=== PATIENT | male | born 1985 | race Caucasian/White ===

== ENCOUNTER 2025-02-13 18:59 | Inpatient (IN) | payer OTHER, SELFPAY ==
[2025-02-13] VITALS (9 sets, daily range): BP systolic 100–134; BP diastolic 50–76
[2025-02-13 16:47] LABS: Glucose - Point of Care 420 mg/dl (70-99)
[2025-02-13] MEDS: ZOFRAN 4 MG IV (16:55)
[2025-02-13] MEDS: NSS 1000 IV ×4 (16:55→18:19)
[2025-02-13 16:57] LABS: Hematocrit 41.9 % (39.0-52.0); Hemoglobin 15.1 g/dL (13.0-18.0); Mean Corp Hgb Conc. 36.0 g/dL (33.0-37.0); Mean Corpuscular Volume 85.3 fL (80.0-94.0); Nucleated Red Blood Cells % 0 % (-); Platelet Count 293 10^3/uL (130-400); Red Cell Dist. Width 12.6 % (11.5-14.5)
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
[2025-02-13] MEDS: VERSED 2 MG IV (17:12)
[2025-02-13 17:21] LABS: Troponin I < 0.012 ng/ml
[2025-02-13 17:45] LABS: AST (SGOT) 25 U/L (17-59); Albumin 4.8 g/dl (3.5-5.0); Alkaline Phosphatase 112 U/L (38-126); Blood Urea Nitrogen 20 mg/dl (9-20); Calcium 10.2 mg/dl (8.4-10.2); Carbon Dioxide 12 mmol/L (22-30); Chloride 99 mmol/L (98-107); Glucose 418 mg/dl (70-99); Lipase 17 U/L (23-300); Potassium 4.7 mmol/L (3.5-5.1); Sodium 133 mmol/L (135-145); Total Protein 7.4 g/dl (6.3-8.2); eGFR > 60.00
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
[2025-02-13 18:15] LABS: Glucose - Point of Care 400 mg/dl (70-99)
[2025-02-13] MEDS: NOVOLIN R 8 UNITS IV (18:22)
[2025-02-13 18:24] LABS: Urine Character Clear (Clear)
[2025-02-13 18:28] LABS: Venous Blood Gas B.E. -8.8 mmol/L (-4 to +4); Venous Blood Gas O2 Sat % 82.6 %
--- NOTE | 2025-02-13 18:57 | W.PN.UPDATE ---
Update Note
Progress Note Update
This note serves as an addendum to the H&P by pie filling mixer JUAN�
Vicki JOSELYN
HPI
39 y/o male past medical history of type 1 diabetes, hypothyroidism and polysubstance abuse who presents with vomiting and agitation. Initially patient was brought in by police for agitation, and patient was found to be markedly hyperglycemic.
Patient was given Versed in the emergency department due to the agitation. He continue so complain of nausea, and was previous vomiting. Patient is a poor historian following the Versed. Patient has an insulin pump but at this time it is unclear
if its working properly.
Relevant VS
Vital Signs
Pulse Resp BP Pulse Ox
67 18 134/50 100
02/13/25 17:19 02/13/25 17:19 02/13/25 17:19 02/13/25 17:19
PE
Gen: NAD, not toxic
HEENT: anicteric
Neck: supple
Lungs: CTA
Cor: S1 S2
Abdomen:�soft benign
EXECUTIVE SALES ASSISTANT: AAO3
MS: no edema
Psych: calm
Relevant Data
02/13/25 02/13/25 02/13/25
16:35 16:48 18:13
VBG pH 7.25 L
VBG pO2 54 H
VBG HCO3 18.0 L
Sodium 133 L
Carbon Dioxide 12 L*
Glucose 418 H
Total Bilirubin 1.6 H
Lipase 17 L
Urine Ketones 3+ A
Urine Glucose 4+ A
Ur Buprenorphine Positive H
U Marijuana (THC) Screen Positive H
B-Hydroxybutyrate 1.83 H
POC Glucose 420 H
02/13/25
18:14
VBG pH
VBG pO2
VBG HCO3
Sodium
Carbon Dioxide
Glucose
Total Bilirubin
Lipase
Urine Ketones
Urine Glucose
Ur Buprenorphine
U Marijuana (THC) Screen
B-Hydroxybutyrate
POC Glucose 400 H
ASSESSMENT & PLAN
DKA due to function insulin pump
POS BHB
AG MA 22
- Dry heaving
- hold pump
- insulin gtt
- IVFs
- Monitor BMP every 4 hours and blood glucose every 1 hour
- DM VICE PRESIDENT QUALITY ASSURANCE VICE PRESIDENT QUALITY ASSURANCE consult with anion gap closes
Hypothyroidism
-Continue levothyroxine
Polysubstance Abuse HX
- UDS pending
- on chr buprenorphine
Hx Alcohol Abuse
- denies current alcohol abuse
DVT proph: Lovenox
Code Status: Full Code
ICU
Total Critical Care Time_35____ minutes. I was immediately available to the patient and staff. I personally examined, reviewed labs, diagnostic images/reports, interpretations, treatment plans, discussed patient care with other providers and
family or caregivers (if patient is unable to make decisions), entered orders as appropriate and documented the medical record.
[2025-02-13] MEDS: TIGAN 200 MG IM (19:00)
[2025-02-13] MEDS: NOVOLIN R INSULIN INFUSION 100 IV (19:04)
--- NOTE | 2025-02-13 19:16 | EDRN ---
Report given to Inna in ICU
[2025-02-13 19:24] LABS: ALT (SGPT) 29 U/L (0-50)
[2025-02-13 19:49] LABS: Glucose - Point of Care 247 mg/dl (70-99)
[2025-02-13] MEDS: D5/0.45%NSS with KCL 20 MEQ 1000 IV (20:16)
[2025-02-13] MEDS: SUBUTEX 8 MG SL (20:16)
[2025-02-13 21:10] LABS: Glucose - Point of Care 177 mg/dl (70-99)
--- NOTE | 2025-02-13 21:27 | PTCARENOTE ---
Pt arrived from ED to ICU approx 19:30. Pt Ox3, pleasant and cooperative. Pulses palpable, HR mid 90s. RA, pulse ox 99%, breath sounds clear t/o. + bowel sounds, denies nausea. No BM or urine output noted at this time. Skin intact. Insulin gtt
continues, dose adjusted per DKA protocol. BS <250, IVF changed per provider. Safe environment maintained, call pérez within reach, family at bedside.
[2025-02-13 22:24] LABS: Glucose - Point of Care 173 mg/dl (70-99)
[2025-02-13 22:33] LABS: Blood Urea Nitrogen 19 mg/dl (9-20); Calcium 8.7 mg/dl (8.4-10.2); Carbon Dioxide 25 mmol/L (22-30); Chloride 104 mmol/L (98-107); Glucose 188 mg/dl (70-99); Potassium 4.1 mmol/L (3.5-5.1); Sodium 135 mmol/L (135-145); eGFR > 60.00
[2025-02-13] MEDS: MELATONIN 10 MG PO (22:48)
[2025-02-13] MEDS: NICODERM TRANSDERMAL 21 MG TRANSDERM (22:48)
[2025-02-13 23:45] LABS: Glucose - Point of Care 210 mg/dl (70-99)
[2025-02-14] VITALS (13 sets, daily range): BP systolic 86–128; BP diastolic 55–77
[2025-02-14] MEDS: D5/0.45%NSS with KCL 20 MEQ 1000 IV ×2 (00:51→04:59)
[2025-02-14 00:54] LABS: Glucose - Point of Care 215 mg/dl (70-99)
[2025-02-14 01:08] LABS: Blood Urea Nitrogen 18 mg/dl (9-20); Calcium 8.3 mg/dl (8.4-10.2); Carbon Dioxide 25 mmol/L (22-30); Chloride 106 mmol/L (98-107); Glucose 218 mg/dl (70-99); Potassium 4.6 mmol/L (3.5-5.1); Sodium 135 mmol/L (135-145); eGFR > 60.00
[2025-02-14] MEDS: TIGAN 200 MG IM (02:09)
[2025-02-14 02:17] LABS: Glucose - Point of Care 223 mg/dl (70-99)
[2025-02-14 03:20] LABS: Glucose - Point of Care 221 mg/dl (70-99)
[2025-02-14 04:36] LABS: Glucose - Point of Care 223 mg/dl (70-99)
[2025-02-14 06:27] LABS: Glucose - Point of Care 216 mg/dl (70-99)
[2025-02-14 06:37] LABS: Hematocrit 33.5 % (39.0-52.0); Hemoglobin 11.8 g/dL (13.0-18.0); Mean Corp Hgb Conc. 35.2 g/dL (33.0-37.0); Mean Corpuscular Volume 87.7 fL (80.0-94.0); Nucleated Red Blood Cells % 0 % (-); Platelet Count 221 10^3/uL (130-400); Red Cell Dist. Width 12.8 % (11.5-14.5)
[2025-02-14 06:41] LABS: INR 1.20; PT 15.5 Sec (11.4-14.6)
[2025-02-14 06:42] LABS: APTT 30.5 Sec (23.4-35.0)
[2025-02-14 06:50] LABS: Blood Urea Nitrogen 14 mg/dl (9-20); Calcium 8.2 mg/dl (8.4-10.2); Carbon Dioxide 23 mmol/L (22-30); Chloride 107 mmol/L (98-107); Glucose 212 mg/dl (70-99); Potassium 4.7 mmol/L (3.5-5.1); Sodium 134 mmol/L (135-145); eGFR > 60.00
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
[2025-02-14] MEDS: SUBUTEX 8 MG SL ×2 (08:14→19:49)
[2025-02-14] MEDS: SYNTHROID 150 MCG PO (08:14)
[2025-02-14] MEDS: D5/0.45%NSS with KCL 20 MEQ IV ×2 (08:14→11:41)
--- NOTE | 2025-02-14 08:21 | PTCARENOTE ---
Update assessment, vital signs and plan of cares. Update with home health lpn team, pharmacy and critical care team. Prep for transition off ivf, off insulin drip. Labs updated as ordered. Follow up teaching ongoing. Update sent to diabetic coordinator
team. Continue follow up teaching.
[2025-02-14] MEDS: LANTUS 0.25 UNITS SC (08:35)
[2025-02-14 08:46] LABS: Glucose - Point of Care 162 mg/dl (70-99)
[2025-02-14] MEDS: NOVOLOG FLEXPEN-LOW RESISTANCE 1 UNITS SC (09:11)
[2025-02-14] MEDS: NOVOLOG FLEXPEN 5 UNITS SC ×3 (09:11→16:35)
--- NOTE | 2025-02-14 10:23 | PTCARENOTE ---
Updated plan of cares. Continue transition process. Update with hospitalist team. Follow up ongoing labs as ordered.
[2025-02-14 11:11] LABS: Glycohemoglobin (HgbA1c) 7.9 % (4.0-5.6)
[2025-02-14 11:21] LABS: Glucose - Point of Care 121 mg/dl (70-99)
[2025-02-14] MEDS: NOVOLOG FLEXPEN-LOW RESISTANCE SC (11:28)
--- NOTE | 2025-02-14 13:30 | PTCARENOTE ---
Patient downgraded to Med-Surgical status. Continue accu data trends. Update with family at bedside. Will update hospitalist team 1800 labs. IVF capped tolerating po intake.
--- NOTE | 2025-02-14 13:32 | CM ---
manager of supply chain reviewed patient's chart and met with patient and patient states he lives with his parents in 2 story home, with 3 steps to enter, patient is independent with adl's and ambulation, no dme, patient reports that he is to blame when his
insulin pump failed. Patient has a long history of polysubstance abuse, has met with [facility] in past and has been placed for inpatient treatment. Plan: home when stable.
PCP: [facility], per patient has an appointment on 03/05/25
Pharmacy: [facility] in [place].
--- NOTE | 2025-02-14 14:36 | W.PN.HOSP.TC ---
Today's Communication/Plan
-
cont dm diet
monitor bmp
pump eval prior to dc
Assessment / Plan
Assessment / Plan
General: Well Developed and Well Nourished, weating
HEENT: Anicteric
Respiratory: Clear and Non Labored Respirations
Cardiac: S1/S2 and Regular Rhythm
GI: Soft and Non Tender
Musculoskeletal: No Clubbing and No Cyanosis
Skin: Warm and Dry
Neuro: Awake, Alert, Oriented and Nonfocal/grossly intact
Psych: Calm
Diabetic Ketoacidosis, suspect triggered by malfunction insulin pump
-Gap Closed
-Transitioned over to long acting insulin
-a1c 7.9
-Off IVF
-DM diet - tolerating well
-Can check bmp one more time later today
-Plan for diabetic TRACK LINER OPERATOR consult for pump failure prior to dc
Hypothyroidism
-Continue levothyroxine
Polysubstance Abuse
-Continue buprenorphine
Hx Alcohol Abuse - Patient denies current alcohol abuse
DVT proph: Lovenox
Code Status: Full Code
Anticipated Discharge: 24 - 48 hours
Subjective/Interval History
-
Date of Service: February 14, 2025
Close overnight, transitioned over to subcu insulin this morning
Objective Data
-
Labs:
Laboratory Results
02/14/25 02/14/25 02/14/25
06:10 06:11 08:00
WBC 11.4 H
Hgb 11.8 L D
Hct 33.5 L
Plt Count 221 D
PT 15.5 H
INR 1.20
APTT 30.5
Sodium 134 L Cancelled
Potassium 4.7 Cancelled
Chloride 107 Cancelled
Carbon Dioxide 23 Cancelled
BUN 14 Cancelled
Creatinine 0.6 L Cancelled
Glucose 212 H Cancelled
Calcium 8.2 L Cancelled
Total Bilirubin Pending
AST Pending
ALT Pending
Alkaline Phosphatase Pending
02/14/25
18:00
WBC
Hgb
Hct
Plt Count
PT
INR
APTT
Sodium Pending
Potassium Pending
Chloride Pending
Carbon Dioxide Pending
BUN Pending
Creatinine Pending
Glucose Pending
Calcium Pending
Total Bilirubin
AST
ALT
Alkaline Phosphatase
Vital Signs:
Vital Signs
Temp Pulse Resp BP Pulse Ox
98.4 F 68 15 98/59 100
02/14/25 11:40 02/14/25 12:00 02/14/25 12:00 02/14/25 08:21 02/14/25 13:00
I&O
02/13/25 02/14/25 02/15/25
06:59 06:59 06:59
Intake Total 1420 / 1420
Output Total 800 / 800
Balance 620 / 620
Review of Systems
-
History Source: Patient
All other systems: Not reviewed unless documented
Data Reviewed
-
Diagnostic Radiology: Report Reviewed by me
Labs: Labs Reviewed by me
[2025-02-14 16:14] LABS: ALT (SGPT) 15 U/L (0-50); AST (SGOT) 20 U/L (17-59); Albumin 3.3 g/dl (3.5-5.0); Alkaline Phosphatase 54 U/L (38-126); Magnesium 1.9 mg/dl (1.6-2.3); Total Protein 5.6 g/dl (6.3-8.2)
[2025-02-14] MEDS: NOVOLOG FLEXPEN-LOW RESISTANCE 2 UNITS SC (16:36)
[2025-02-14 16:45] LABS: Glucose - Point of Care 224 mg/dl (70-99)
[2025-02-14 19:04] LABS: Blood Urea Nitrogen 15 mg/dl (9-20); Calcium 8.8 mg/dl (8.4-10.2); Carbon Dioxide 26 mmol/L (22-30); Chloride 103 mmol/L (98-107); Glucose 197 mg/dl (70-99); Potassium 4.5 mmol/L (3.5-5.1); Sodium 135 mmol/L (135-145); eGFR > 60.00
[2025-02-14 21:49] LABS: Glucose - Point of Care 239 mg/dl (70-99)
[2025-02-14] MEDS: MELATONIN 10 MG PO (22:16)
[2025-02-15] MEDS: SYNTHROID 150 MCG PO (05:41)
[2025-02-15 07:37] LABS: Hematocrit 35.2 % (39.0-52.0); Hemoglobin 12.4 g/dL (13.0-18.0); Mean Corp Hgb Conc. 35.2 g/dL (33.0-37.0); Mean Corpuscular Volume 88.9 fL (80.0-94.0); Platelet Count 207 10^3/uL (130-400); Red Cell Dist. Width 12.9 % (11.5-14.5)
[2025-02-15 07:42] LABS: Glucose - Point of Care 262 mg/dl (70-99)
[2025-02-15 07:44] LABS: Blood Urea Nitrogen 10 mg/dl (9-20); Calcium 8.5 mg/dl (8.4-10.2); Carbon Dioxide 29 mmol/L (22-30); Chloride 105 mmol/L (98-107); Glucose 232 mg/dl (70-99); Potassium 4.9 mmol/L (3.5-5.1); Sodium 136 mmol/L (135-145); eGFR > 60.00
[2025-02-15] MEDS: SUBUTEX 8 MG SL ×2 (07:53→17:34)
[2025-02-15] MEDS: LANTUS 0.25 UNITS SC (07:54)
[2025-02-15 07:56] VITALS: BP 121/74
[2025-02-15] MEDS: NOVOLOG FLEXPEN 5 UNITS SC (08:20)
[2025-02-15] MEDS: NOVOLOG FLEXPEN-LOW RESISTANCE 3 UNITS SC (08:21)
[2025-02-15] MEDS: MOTRIN 400 MG PO (12:02)
[2025-02-15 12:06] LABS: Glucose - Point of Care 233 mg/dl (70-99)
--- NOTE | 2025-02-15 12:16 | W.PN.HOSP.TC ---
Today's Communication/Plan
-
Titrate up insulin regimen
Await diabetic INFORMATION SECURITY CONSULTANT to evaluate pump failure prior to discharge
Assessment / Plan
Assessment / Plan
General: Well Developed and Well Nourished, weating
HEENT: Anicteric
Respiratory: Clear and Non Labored Respirations
Cardiac: S1/S2 and Regular Rhythm
GI: Soft and Non Tender
Musculoskeletal: No Clubbing and No Cyanosis
Skin: Warm and Dry
Neuro: Awake, Alert, Oriented and Nonfocal/grossly intact
Psych: Calm
Diabetic Ketoacidosis, suspect triggered by malfunction insulin pump
-Gap Closed
-Transitioned over to long acting insulin morning of 02/14, titrated up today
-a1c 7.9
-Off IVF
-DM diet - tolerating well
-Plan for diabetic INFORMATION SECURITY CONSULTANT consult for pump failure prior to dc
Hypothyroidism
-Continue levothyroxine
Polysubstance Abuse
-Continue buprenorphine
Hx Alcohol Abuse - Patient denies current alcohol abuse
DVT proph: Lovenox
Code Status: Full Code
Anticipated Discharge: Within 24 hours
Subjective/Interval History
-
Date of Service: February 15, 2025
No acute events overnight
Objective Data
-
Labs:
Laboratory Results
02/15/25
06:28
WBC 4.8
Hgb 12.4 L
Hct 35.2 L
Plt Count 207
Sodium 136
Potassium 4.9
Chloride 105
Carbon Dioxide 29
BUN 10
Creatinine 0.6 L
Glucose 232 H
Calcium 8.5
Vital Signs:
Vital Signs
Temp Pulse Resp BP Pulse Ox
98.3 F 48 16 121/74 100
02/15/25 07:56 02/15/25 07:56 02/15/25 07:56 02/15/25 07:56 02/15/25 07:56
I&O
02/14/25 02/15/25 02/16/25
06:59 06:59 06:59
Intake Total 1900 / 1900
Output Total 800 / 800
Balance 1100 / 1100
Review of Systems
-
History Source: Patient
All other systems: Not reviewed unless documented
Data Reviewed
-
Diagnostic Radiology: Report Reviewed by me
Labs: Labs Reviewed by me
[2025-02-15] MEDS: NOVOLOG FLEXPEN 7 UNITS SC ×2 (12:51→17:34)
[2025-02-15] MEDS: NOVOLOG FLEXPEN-LOW RESISTANCE 2 UNITS SC (12:52)
[2025-02-15] MEDS: NOVOLOG FLEXPEN SC (12:58)
[2025-02-15 15:00] VITALS: BP 102/68
[2025-02-15 17:12] LABS: Glucose - Point of Care 138 mg/dl (70-99)
[2025-02-15] MEDS: NOVOLOG FLEXPEN-LOW RESISTANCE SC (17:16)
[2025-02-15 21:39] LABS: Glucose - Point of Care 81 mg/dl (70-99)
[2025-02-15 23:02] LABS: Glucose - Point of Care 60 mg/dl (70-99)
[2025-02-15 23:27] LABS: Glucose - Point of Care 79 mg/dl (70-99)
[2025-02-15 23:49] VITALS: BP 115/72
[2025-02-15] MEDS: MELATONIN 5 MG PO (23:57)
[2025-02-16 03:14] LABS: Glucose - Point of Care 190 mg/dl (70-99)
[2025-02-16 06:00] VITALS: BMI 21.5
[2025-02-16] MEDS: SYNTHROID 150 MCG PO (06:37)
[2025-02-16 07:24] LABS: Hematocrit 38.3 % (39.0-52.0); Hemoglobin 13.3 g/dL (13.0-18.0); Mean Corp Hgb Conc. 34.7 g/dL (33.0-37.0); Mean Corpuscular Volume 89.1 fL (80.0-94.0); Platelet Count 222 10^3/uL (130-400); Red Cell Dist. Width 12.7 % (11.5-14.5)
--- NOTE | 2025-02-16 07:44 | PN.DE.MGMTRT ---
Insulin Management
- -
02/16/2025: Diabetes Management Consult
39 year old male with PMH: T1DM, alcohol use disorder, hypothyroidism, polysubstance abuse.
Admitted for vomiting, found to be in DKA. Was started on insulin infusion. A1C 7.9%, states it has improved from 8.9 since his last checkup. Cr 0.6, eGFR > 60.
Was using Medtronic MiniMLockstream 670 G insulin pump and contour Next Ez glucometer at home. Says he sees Endo Dr. Up in [place], last office visit was last week and there were no changes made to his insulin regimen or pump settings.
He was transitioned off insulin infusion and was started on basal bolus insulin yesterday.
Pt awake, alert, oriented, sitting up @ edge of bed, offers no complaints.
On exam, pt is noted for significant areas of scar tissue to Left quad areas from chronic insulin pump use.
He is requesting for pump use to be resumed, all the supplies at the bedside.
Was able to set up infusion set with new insulin and new insertion kit, instructed pt to notify nurse when ordering lunch so he can get the glucose level and enter it in his pump.
Current pump settings:
Basal
12am -5a 0.825
5am -8am 1.2
8am - 5pm 0.825
5pm - 12am 1.0
ICR 1:15 ISF 1:50 Target 100-120
24 hr total basal rate 22.15 units
Pt is capable of managing his insulin pump independently.
PLAN TO SUSPEND HIS BASAL INFUSION UNTIL midnight since he received a dose of basal insulin this morning. Update given to pt's nurse.
Pt is table for discharge home from diabetes standpoint.
Discussed plan at length with patient and Nurse. Instructed nurse to monitor AccuChek Q1 hr for now to make sure that insulin is infusion without issues.
Diabetes History
- -
Type of Diabetes: 1
Pre-Admission Diabetes Regimen
02/15/25
06:28
Creatinine 0.6 L
Lab Results
Hemoglobin A1c 7.9 % (4.0-5.6) H 02/13/25 16:48
Insulin Pump Settings
IP Diabetes Regimen
02/15/25 02/15/25 02/15/25
06:28 12:05 17:11
Glucose 232 H
POC Glucose 233 H 138 H
02/15/25 02/15/25 02/15/25
21:38 22:59 23:26
Glucose
POC Glucose 81 60 L 79
02/16/25
03:12
Glucose
POC Glucose 190 H
Meal type: Lunch
Meal type: Breakfast
Meal type: Lunch
Amount consumed: 100%
Amount consumed: 100%
Amount consumed: 100%
Patient Education
[2025-02-16 07:48] LABS: Blood Urea Nitrogen 10 mg/dl (9-20); Calcium 9.1 mg/dl (8.4-10.2); Carbon Dioxide 32 mmol/L (22-30); Chloride 103 mmol/L (98-107); Estimated Creatinine Clearance > 125 ml/min; Glucose 214 mg/dl (70-99); Potassium 5.0 mmol/L (3.5-5.1); Sodium 140 mmol/L (135-145); eGFR > 60.00
[2025-02-16 08:11] LABS: Glucose - Point of Care 243 mg/dl (70-99)
[2025-02-16] MEDS: NOVOLOG FLEXPEN 7 UNITS SC ×2 (08:12→12:59)
[2025-02-16] MEDS: NOVOLOG FLEXPEN-LOW RESISTANCE 2 UNITS SC (08:12)
[2025-02-16] MEDS: LANTUS 0.28 UNITS SC (08:13)
[2025-02-16] MEDS: SUBUTEX 8 MG SL ×2 (08:13→17:13)
[2025-02-16 08:19] VITALS: BP 112/72
--- NOTE | 2025-02-16 10:17 | W.PN.HOSP.TC ---
Today's Communication/Plan
-
ok to discharge the patient if Diabetic ROOF FIXER agrees.
Assessment / Plan
Assessment / Plan
Physical exam:
General: Well Developed and Well Nourished,
HEENT: Anicteric
Respiratory: Clear and Non Labored Respirations
Cardiac: S1/S2 and Regular Rhythm
GI: Soft and Non Tender
Musculoskeletal: No Clubbing and No Cyanosis
Skin: Warm and Dry
Neuro: Awake, Alert, Oriented and Nonfocal/grossly intact
Psych: Calm
Diabetic Ketoacidosis, metabolic acidosis, triggered by malfunction insulin pump, resolved.
-Gap Closed
-Transitioned over to long acting insulin morning of 02/14, titrated up today
-a1c 7.9
-Off IVF
WBC normal now
-DM diet - tolerating well
-Plan for diabetic ROOF FIXER consult for pump failure prior to dc
Hyponatremia, mild and resolved
Hypothyroidism
Low TSH but normal T4.
-Continue levothyroxine
Polysubstance Abuse
-Continue buprenorphine
Hx Alcohol Abuse - Patient denies current alcohol abuse
No signs of delirium, he is lucid and pleasant, no tremor.
DVT proph: Lovenox
Code Status: Full Code
Total discharge time spent to see the patient, examine the patient, review data and lab result, discuss discharge plan with patient, nursing staff around 65 minutes
Anticipated Discharge: Today
Subjective/Interval History
-
Date of Service: February 16, 2025
Objective Data
-
Labs:
Laboratory Results
02/16/25
06:17
WBC 5.3
Hgb 13.3
Hct 38.3 L
Plt Count 222
Sodium 140
Potassium 5.0
Chloride 103
Carbon Dioxide 32 H
BUN 10
Creatinine 0.6 L
Glucose 214 H
Calcium 9.1
Vital Signs:
Vital Signs
Temp Pulse Resp BP Pulse Ox
98.1 F 47 16 112/72 97
02/16/25 08:19 02/16/25 08:19 02/16/25 08:19 02/16/25 08:19 02/16/25 08:19
I&O
02/15/25 02/16/25 02/17/25
06:59 06:59 06:59
Intake Total 1900 / 1900 1020 / 1020
Output Total 800 / 800
Balance 1100 / 1100 1020 / 1020
[2025-02-16 11:26] LABS: Glucose - Point of Care 293 mg/dl (70-99)
[2025-02-16 12:45] LABS: Glucose - Point of Care 310 mg/dl (70-99)
[2025-02-16] MEDS: NOVOLOG FLEXPEN-LOW RESISTANCE 4 UNITS SC (12:59)
--- NOTE | 2025-02-16 13:22 | CM ---
Patient seen at bedside
discharge planning
primary special educator to see patient
PLAN: Home, no needs
family to transport
[2025-02-16 13:56] LABS: Glucose - Point of Care 222 mg/dl (70-99)
[2025-02-16 15:10] LABS: Glucose - Point of Care 230 mg/dl (70-99)
[2025-02-16 15:31] VITALS: BP 121/70
[2025-02-16 15:40] LABS: Glucose - Point of Care 214 mg/dl (70-99)
--- NOTE | 2025-02-16 16:26 | PTCARENOTE ---
Pt received both 11 units of Novolog as ordered in AUG and own bolus from insulin pump at 1200. Pt has had no s/s of hypoglycemia with sugars checked q1hr for 3 hours. MD made aware, plan of care ongoing.
[2025-02-16 16:39] LABS: Glucose - Point of Care 237 mg/dl (70-99)
[2025-02-16] MEDS: NOVOLOG FLEXPEN-LOW RESISTANCE SC (17:15)
--- NOTE | 2025-02-17 06:25 | W.DCSUMMARY ---
Discharge Summary
Discharge Data
Date of Admission: 02/13/25
Date of Discharge: 02/16/25
-
Pending Results: No
Hospital Course
39 years old male with history of insulin-dependent diabetes presented to the hospital with agitation and vomiting. Patient was brought in by police. Patient was found to be markedly hyperglycemic. He was found to have metabolic acidosis and mild
hyponatremia. His hemoglobin A1c was 7.9. Patient was admitted to intensive care unit and received intravenous insulin for diabetic ketoacidosis protocol. He was evaluated by ICU doctor. His blood sugar started to improve. He was diagnosed with
diabetic ketoacidosis secondary to malfunction of insulin pump. Mentation went back to normal. Patient was transferred out of the ICU and he remained hemodynamically stable. He was followed by diabetic nurse practitioner. Patient was given
instruction regarding his insulin pump, he verbalized understanding. Patient was able to tolerate diet. Patient was discharged in a stable condition.
Discharge Plan
-
Patient Disposition: Home (Routine Discharge)
Discharge Diagnosis/Procedures: DKA
Continue 24 hr total basal rate 22.15 units
Pt is capable of managing his insulin pump independently.
PLAN TO SUSPEND HIS BASAL INFUSION UNTIL midnight because you received Lantus.
Diet: Diabetic, Carb Controlled
Referrals:
UNKNOWN,NO INTERVIEW [Family Provider]
Prescriptions:
Continued
levothyroxine 150 mcg tablet
150 mcg PO DAILY
buprenorphine-naloxone 8-2 mg film
1 film sublingual BID
Patient Comments:
02/13/25: Per PDMP, last filled 01/15/25 #60 for 30 days
Patient Own Insulin Pump
1 sliding scale dose SC .VIA INSULIN LISPRO
Discharge Orders:
Discharge Patient (As Directed); Ordered 02/16/25
Ordered By: Joann Fuentes
Discharge Date and Time
Discharge Date/Time: 02/16/25 18:32
Print Language: NEPALI
== END 2025-02-16 18:32 | disposition home or self-care (01) | DRG 919 ==
LOC: 3 WEST ACU 18:59
PROVIDERS: Internal Medicine; Physician Assistant Medical; ADMITTING PHYSICIAN Internal Medicine; ATTENDING PHYSICIAN Internal Medicine; CONSULT PHYSICIAN Internal Medicine; EMERGENCY PHYSICIAN Emergency Medicine
DX: T85.614A Breakdown (mechanical) of insulin pump, initial encounter (principal); E10.10 Type 1 diabetes mellitus with ketoacidosis without coma; E87.1 Hypo-osmolality and hyponatremia; E03.9 Hypothyroidism, unspecified; F10.10 Alcohol abuse, uncomplicated; F19.10 Other psychoactive substance abuse, uncomplicated; Y74.2 Prosthetic and other implants, materials and accessory general hospital and personal-use devices associated with adverse incidents; F17.200 Nicotine dependence, unspecified, uncomplicated; Z96.41 Presence of insulin pump (external) (internal); Z79.4 Long term (current) use of insulin; Z79.899 Other long term (current) drug therapy; Z79.890 Hormone replacement therapy
CPT/HCPCS: 71045; 80048; 80053; 80076; 80306; 80307; 81003; 82010; 82077; 82805; 82962; 83036; 83690; 83735; 84100; 84439; 84443; 84484; 85025; 85027; 85610; 85730; 93005; 96361; 96365; 96375; 99291